=== PATIENT | male | born 2000 | race Caucasian/White ===

== ENCOUNTER 2020-02-06 15:33 | Emergency (ER) | payer SELFPAY ==
[~2020-02-06] VITALS: Ht 165 cm; Wt 79.0 kg
[~2020-02-06 15:33] MED LIST: CODE-54 PO
[2020-02-06 16:10] VITALS: BP 143/90
--- NOTE | 2020-02-06 16:22 | ED General ---
General Chief Complaint: Cough/Cold/Flu Symptoms Stated Complaint: CP/SOB/SORE THROAT/NAUSEA/CONGESTION/DIARRHEA Source of Information: Patient Exam Limitations: No Limitations History of Present Illness Date Seen by Provider: Feb 06, 2020 Time Seen by Provider: 16:22 Initial Comments body aches, diarrhea, sore throat, general malaise x2 days. Timing/Duration: 1-2 Days Severity: Moderate Associated Systoms: No Fever/Chills Allergies and Home Medications Allergies Coded Allergies: Benzocaine (Unverified Allergy, 09/18/10) Camphor (Unverified Allergy, 09/18/10) Petrolatum,White (Unverified Allergy, 09/18/10) Phenol (Unverified Allergy, 09/18/10) Phenol Liquid (Unverified Allergy, 09/18/10) Pramoxine HCl (Unverified Allergy, 09/18/10) menthol (Unverified Allergy, 09/18/10) Home Medications Codeine Phos/Acetaminophen 1 Tab Tablet, 1-2 TAB PO Q 4-6 HOURS PRN NEEDED FOR PAIN Prescribed by: ARMIDA CHAPARRO on 09/18/10 1819 Patient Home Medication List Home Medication List Reviewed: Yes Review of Systems Review of Systems Constitutional: see HPI, malaise, weakness EENTM: nose congestion, throat pain Respiratory: see HPI; No cough, No short of breath Cardiovascular: no symptoms reported; No chest pain Gastrointestinal: No abdominal pain; diarrhea; No nausea, No vomiting Genitourinary: no symptoms reported Musculoskeletal: no symptoms reported Skin: no symptoms reported Psychiatric/Neurological: No Symptoms Reported Hematologic/Lymphatic: No Symptoms Reported Immunological/Allergic: no symptoms reported Past [id number]-[id number]-[id number] Hx Patient Social History Recent Foreign Travel: No Contact w/Someone Who Travel: No Physical Exam Vital Signs Capillary Refill : Height, Weight, BMI Height: '" Weight: lbs. oz. kg; BMI Method: General Appearance: No Apparent Distress, WD/WN Eyes: Bilateral Eye Normal Inspection, Bilateral Eye PERRL, Bilateral Eye EOMI HEENT: PERRL/EOMI, TMs Normal Neck: Full Range of Motion, Normal Inspection Respiratory: Normal Breath Sounds, No Accessory Muscle Use, No Respiratory Distress Cardiovascular: Regular Rate, Rhythm, Normal Peripheral Pulses Gastrointestinal: Normal Bowel Sounds, Non Tender, Soft Extremity: Normal Capillary Refill, Normal Inspection Neurologic/Psychiatric: Alert, Oriented x3 Skin: Normal Color, Warm/Dry Progress/Results/Core Measures Suspected Sepsis SIRS Temperature: Pulse: Respiratory Rate: Blood Pressure / Mean: Results/Orders My Orders Orders - WILD DOSS APRN Covid 19 Inhouse Test (02/06/20 16:21) Coronavirus Sars-Cov-2 So 2018 (02/06/20 16:21) Influenza A And B Antigens (02/06/20 16:21) Vital Signs/I&O Capillary Refill : Departure Impression Primary Impression: Viral syndrome Disposition: 01 HOME, SELF-CARE Condition: Stable Departure-Patient Inst. Decision time for Depature: 16:22 Referrals: NO,LOCAL PHYSICIAN (PCP/Family) Primary Care Physician Patient Instructions: Viral Syndrome (DC) WILD DOSS APRN Feb 06, 2020 16:22
== END 2020-02-06 16:57 | disposition home or self-care (01) ==
LOC: EDUNIT# 15:33 → ER 15:37
DX: B34.9 Viral infection, unspecified (principal); Z20.828 Contact with and (suspected) exposure to other viral communicable diseases; Z88.8 Allergy status to other drugs, medicaments and biological substances
CPT/HCPCS: 87804; 99282; U0002; 87635